=== PATIENT | male | born 1960 | race Caucasian/White ===

== ENCOUNTER 2021-03-24 10:36 | Outpatient (CLI) | payer BC | END 2021-03-24 10:37 | disposition home or self-care (01) | LOC: CSHMRI 10:36 | PROVIDERS: ATTEND Nurse Practitioner Acute Care | DX: S16.1XXA Strain of muscle, fascia and tendon at neck level, initial encounter (principal); G40.89 Other seizures | CPT/HCPCS: 70553 ==

== ENCOUNTER 2021-04-07 09:00 | Outpatient (CLI) | payer BC | END 2021-04-07 09:01 | disposition home or self-care (01) | LOC: CSHMRI 09:00 | PROVIDERS: ATTEND Orthopaedic Surgery | DX: M25.511 Pain in right shoulder (principal); S46.011A Strain of muscle(s) and tendon(s) of the rotator cuff of right shoulder, initial encounter; M75.81 Other shoulder lesions, right shoulder; S43.431A Superior glenoid labrum lesion of right shoulder, initial encounter; M62.511 Muscle wasting and atrophy, not elsewhere classified, right shoulder ==